=== PATIENT | male | born 1995 | race African-American/Black ===

== ENCOUNTER 2017-06-01 03:54 | Emergency (ER) | payer OTHER ==
[~2017-06-01] VITALS: Ht 175.3 cm; Wt 63.5 kg
[2017-06-01 04:00] VITALS: BP_SYST 131
[2017-06-01 04:27] VITALS: BP_SYST 131
== END 2017-06-01 04:27 | disposition home or self-care (01) ==
LOC: SED 03:54
DX: Z00.00 Encounter for general adult medical examination without abnormal findings (principal); R03.0 Elevated blood-pressure reading, without diagnosis of hypertension; Z88.1 Allergy status to other antibiotic agents
CPT/HCPCS: 99283